=== PATIENT | male | born 1955 | race Caucasian/White ===

== ENCOUNTER 2021-01-31 09:12 | Day surgery (SDC) | payer MEDICARE, SELFPAY ==
[2021-01-31 09:39] VITALS: BP 148/69; PULSE 68; RESP 18; TEMP 36.1; O2SAT 93; BMI 57.8
--- NOTE | 2021-01-31 09:53 | PC.NURSE ---
pt becomes sob with exertion on oxygen at home prn for sob pwd ls clear . oxygen applied at 2 liter after pt became sob after ambulating pt restinf comfortbaly nad no sob pwd
--- NOTE | 2021-01-31 10:05 | P.CONAN_ITS ---
HPI - Anesthesia Eval Consult details Narrative: 65 year old male patient here for colonoscopy REPLACED BY [facility] Past Medical History Medical History (Updated 01/28/21 @ 10:20 by Sweetie Junior) Arrhythmia CAD (coronary artery disease) COPD (chronic obstructive pulmonary disease) Diabetes Elevated cholesterol GERD (gastroesophageal reflux disease) History of cardioversion HTN (hypertension) Hx of cancer of lung On anticoagulant therapy On beta milan at home Oxygen dependent Family History Family history of problems with anesthesia: No Surgical History Surgical History (Updated 01/28/21 @ 10:20 by Sweetie Junior) H/O colonoscopy History of colon resection History of colostomy reversal History of PTCA History of Problems with Anesthesia: No Social History Social History Are you a primary senior caregiver to a significant other at home: No Do you presently have visiting nurse or other home services: No Smoking Status: Former smoker Smoking Quit Date: 2015 Use of substances other than those prescribed or required for medical reasons: No Have you been hit, kicked, punched, or otherwise hurt by someone within the past year? If so, by whom?: No Advance Directives Information Provided: No Recently lost weight without trying: No Meds Allergies Allergy/AdvReac Type Severity Reaction Status Date / Time No Known Allergies Allergy Mild NOT Unverified 08/15/20 16:17 APPLICABLE Active Medications: Current Medications Generic Name Dose Route Start Last Admin Trade Name Freq PRN Reason Stop Dose Admin Lactated Ringer's 1,000 mls @ 100 mls/hr 01/31/21 10:15 Lr IVCONT .Q10H [facility] Home Medications Medication Instructions Recorded Confirmed Last Taken Type albuterol sulfate 0.63 mg INHALATION Q4-6H PRN 01/28/21 01/28/21 Unknown History albuterol sulfate [Ventolin HFA] 2 puff INHALATION QID PRN 01/28/21 01/28/21 01/31/21 History apixaban [Eliquis] 1 tab PO BID 01/28/21 01/28/21 01/27/21 History aspirin [Aspirin Low Dose] 81 mg PO DAILY 01/28/21 01/28/21 01/29/21 History azithromycin 1 tab PO 3XW 01/28/21 01/28/21 Unknown History dulaglutide [Trulicity] 0.5 ml SUBCUT QWEEK 01/28/21 01/28/21 Unknown History ferrous sulfate 1 tab PO DAILY 01/28/21 01/28/21 01/27/21 History dvjxzugifue-smzrsmpqt-pxsdpdtx 1 inh INHALATION QAM 01/28/21 01/28/21 01/31/21 History [Trelegy Ellipta] gabapentin 1 tab PO TID 01/28/21 01/28/21 01/31/21 History magnesium oxide 0.5 tab PO BID 01/28/21 01/28/21 Unknown History metformin 2 tab PO BID 01/28/21 01/28/21 Unknown History omeprazole 1 cap PO QAM 01/28/21 01/28/21 01/31/21 History potassium chloride 10 meq PO BID 01/28/21 01/28/21 Unknown History rosuvastatin 1 tab PO DAILY 01/28/21 01/28/21 Unknown History sotalol 40 tab PO BID 01/28/21 01/28/21 01/31/21 History torsemide 20 mg PO BID 01/28/21 01/28/21 Unknown History gabapentin 1 tab PO TID 01/31/21 01/31/21 Unknown History prednisone PO 01/31/21 01/31/21 Unknown History sotalol 1 tab PO BID 01/31/21 01/31/21 01/31/21 History Exam Exam Date and Time: January 31, 2021 1005 Height,Weight and Vital Signs: Height 5 ft 8.5 in Weight 175 kg Last Vital Signs Temp 97 F 01/31/21 09:39 Pulse 68 01/31/21 09:39 Resp 18 01/31/21 09:39 BP 148/69 H 01/31/21 09:39 Pulse Ox 93 01/31/21 09:39 Pertinent Lab Results Pertinent Lab Results: Lab Results 01/31/21 Range/Units 09:52 POC Glucose 152 H (60-115) mg/dL Airway Mallampati Class: II TM Dist: >3cm Neck ROM: Full Partial: Upper and Lower Heart: RRR Lungs: CTAB.Diminished. Not moving much air but Sats 97% on 2L NC Assessment and Plan Assessment Anesthesia Assessment: Anesthesia Plan Discussed and Chart Reviewed Final Anesthetic Review NPO: Yes ASA Class: III Final Preanesthetic Review: No Changes in Pt Med Stat, Meds/Allgs Chart Reviewed, Consent Obtained/Reviewed and Anes Risks/Benef Reviewed Patient Risk: High Procedure Risk: Low Assessment/Block/Sedation in SS: Assess/Block/Sedation-SS Anesthetic Plan Anesthetic Plan: MAC: Disposition: Standard PACU
--- NOTE | 2021-01-31 10:06 | PC.NURSE ---
anesthesia aware of o22 sat now 92-94 0.5 liters no sob pwd
[2021-01-31] MEDS: Lactated Ringers 1,000 ML 100 ML IVCONT (10:07)
[2021-01-31 10:10] LABS: Glucose, Whole Blood 152 mg/dL (60-115)
--- NOTE | 2021-01-31 10:12 | MHC.SHP ---
Pre-Procedural Eval Section A The patient is an INPATIENT: No Changes since office visit: No Cold of Flu in the past 2 weeks, No New Medical Problems, No Changes in Medication and No Patient answered all questions The History & Physical has been completed within 30 days and I have reviewed it.: Yes Section B Chief Complaint: Screening, Hx of Colon polyps Allergies: Allergies Allergy/AdvReac Type Severity Reaction Status Date / Time No Known Allergies Allergy Mild NOT Unverified 08/15/20 16:17 APPLICABLE Plan I have reviewed the history and physical and performed a pertinent physical examination on my patient. No changes have occurred unless specified.
--- NOTE | 2021-01-31 10:38 | PM.OP ---
Brief Operative Note Date of Service: 01/31/21 Pre-op diagnosis: screening Post-op diagnosis: same (colon polyps) Procedure: colonoscopy Surgeon: Roger Morgan Anesthesia: MAC Estimated blood loss (mL): 5 Condition: stable Disposition: PACU
[2021-01-31 10:40] VITALS: BP 131/52; PULSE 74; RESP 16; TEMP 36.5; O2SAT 95
--- NOTE | 2021-01-31 10:50 | OP_ITS ---
SURGEON: Roger Morgan MD INDICATIONS: Colon cancer screening. PREOPERATIVE DIAGNOSIS: POSTOPERATIVE DIAGNOSIS: PROCEDURE PERFORMED: Colonoscopy to the terminal ileum with biopsy and snare polypectomy. ESTIMATED BLOOD LOSS: COMPLICATIONS: ANESTHESIA: ASSISTANTS: SPECIMENS: MEDICATIONS: Monitored anesthesia care. DESCRIPTION OF PROCEDURE: History and physical performed. The risks and benefits of the procedure were explained to the patient. Informed consent was obtained and the patient was placed in left lateral decubitus position. A digital rectal exam was performed and was found to be normal. The Olympus pediatric video colonoscope was introduced into the rectum and advanced to the cecum without difficulty. The cecum was identified by transillumination, palpation, and identification of ileocecal valve. Examination was performed and the scope was removed. He tolerated the procedure well and was transferred to recovery area in stable condition. FINDINGS: The terminal ileum was normal. The visualized colonic mucosa was normal. Three polyps were identified and removed. Two were removed with biopsy forceps measuring less than 5 mm. One was in the cecum, one was at 65 cm. The 3rd polyp measuring about 7 mm was removed with a snare and recovered via suction at 55 cm. There was a patent anastomosis at 20 cm from his previous surgery. There was some mild diverticulosis in the vicinity of the anastomosis. Retroflexed examination showed internal hemorrhoids. IMPRESSION: Colon polyps. RECOMMENDATION: Follow up the biopsy results. MD NAYAN Gallardo/MARY / [id number]
[2021-01-31 10:55] VITALS: BP 137/76; PULSE 77; RESP 17; TEMP 36.2; O2SAT 95
== END 2021-01-31 11:21 | disposition home or self-care (01) ==
PROVIDERS: PCP Internal Medicine; Visit Provider Internal Medicine Gastroenterology
PROC: 0DJD8ZZ Inspection of Lower Intestinal Tract, Via Natural or Artificial Opening Endoscopic (ICD-10-PCS; CPT 45378; principal; 2021-01-31 10:50)
DX: Z12.11 Encounter for screening for malignant neoplasm of colon (principal); Z86.010 Personal history of colon polyps; D12.0 Benign neoplasm of cecum; D12.4 Benign neoplasm of descending colon; D12.5 Benign neoplasm of sigmoid colon; K57.30 Diverticulosis of large intestine without perforation or abscess without bleeding; K64.8 Other hemorrhoids; Z98.0 Intestinal bypass and anastomosis status; J44.9 Chronic obstructive pulmonary disease, unspecified; I10 Essential (primary) hypertension; E11.9 Type 2 diabetes mellitus without complications; I48.91 Unspecified atrial fibrillation; Z79.01 Long term (current) use of anticoagulants; Z79.84 Long term (current) use of oral hypoglycemic drugs; Z79.51 Long term (current) use of inhaled steroids; Z79.899 Other long term (current) drug therapy; Z85.118 Personal history of other malignant neoplasm of bronchus and lung; Z92.3 Personal history of irradiation; Z99.81 Dependence on supplemental oxygen; Z87.891 Personal history of nicotine dependence
CPT/HCPCS: 45385; 45380; 82947; 88305

== ENCOUNTER 2021-05-19 12:00 | Outpatient (REF) | payer MEDICARE, SELFPAY ==
[2021-05-19 12:12] LABS: Eosinophils Absolute Auto 0.1 X10*3/uL (0.0-0.4); Eosinophils Percent Auto 0.8 % (0-4)
[2021-05-19 12:24] LABS: MANUAL DIFF FLAG SCAN; SCAN SMEAR FLAG 1
[2021-05-19 12:26] LABS: Hematocrit 27.1 % (42-52); Imm Gran Abs Auto 0.06 X10*3/uL (0.00-0.03); Imm Gran Pct Auto 0.6 % (0.0-0.4); Mean Corpuscular Volume 72.8 fL (80-98); NRBC Pct Auto 0.8 /100WBC (0.0-0.2); Red Blood Count 3.72 X10*6/uL (4.60-5.80)
[2021-05-19 12:27] LABS: Basophils Percent Auto 0.3 % (0-2); Lymphocytes Absolute Auto 0.7 X10*3/uL (1.2-4.9); Lymphocytes Percent Auto 7.3 % (20-40); Mean Corpuscular HGB Conc 25.8 g/dl (31.0-36.0); Mean Corpuscular Hemoglobin 18.8 pg (27.0-33.0); Mean Platelet Volume 10.7 fL (9.4-12.4); Monocytes Absolute Auto 0.5 X10*3/uL (0.1-1.2); Monocytes Percent Auto 4.5 % (2-11); Neutrophils Absolute Auto 8.6 X10*3/uL (2.0-8.3); Neutrophils Percent Auto 86.5 % (45-73); Platelet Count 306 X10*3/uL (160-400); Red Cell Distribution Width 20.6 % (11.0-16.0); White Blood Count 9.9 X10*3/uL (4.8-10.8)
[2021-05-19 13:32] LABS: PLT ABN DIST 1
[2021-05-19 13:35] LABS: SLIDE REVIEW VERIFIED
== END 2021-05-19 12:01 | disposition home or self-care (01) ==
LOC: HO.LNP 12:00
PROVIDERS: Visit Provider Internal Medicine
DX: Z01.818 Encounter for other preprocedural examination (principal)
CPT/HCPCS: 85025

== ENCOUNTER 2021-05-26 16:02 | Outpatient (REF) | payer MEDICARE, SELFPAY ==
[2021-05-26 16:12] LABS: Mean Corpuscular Hemoglobin 21.5 pg (27.0-33.0); SCAN SMEAR FLAG 1
[2021-05-26 16:14] LABS: Basophils Percent Auto 0.3 % (0-2); Eosinophils Absolute Auto 0.2 X10*3/uL (0.0-0.4); Eosinophils Percent Auto 2.1 % (0-4); Hematocrit 35.8 % (42-52); Hemoglobin 9.3 g/dl (14.0-18.0); Imm Gran Abs Auto 0.08 X10*3/uL (0.00-0.03); Imm Gran Pct Auto 0.7 % (0.0-0.4); Lymphocytes Absolute Auto 2.2 X10*3/uL (1.2-4.9); Lymphocytes Percent Auto 19.9 % (20-40); Mean Corpuscular Volume 82.7 fL (80-98); Mean Platelet Volume 10.4 fL (9.4-12.4); Monocytes Absolute Auto 0.9 X10*3/uL (0.1-1.2); Monocytes Percent Auto 8.3 % (2-11); NRBC Pct Auto 0.5 /100WBC (0.0-0.2); Neutrophils Absolute Auto 7.7 X10*3/uL (2.0-8.3); Neutrophils Percent Auto 68.7 % (45-73); Platelet Count 192 X10*3/uL (160-400); Red Blood Count 4.33 X10*6/uL (4.60-5.80); Red Cell Distribution Width 27.2 % (11.0-16.0); White Blood Count 11.2 X10*3/uL (4.8-10.8)
[2021-05-26 16:15] LABS: MANUAL DIFF FLAG NO; PLT ABN DIST 1
== END 2021-05-26 16:03 | disposition home or self-care (01) ==
LOC: HO.LNP 16:02
PROVIDERS: Visit Provider Internal Medicine
DX: K92.2 Gastrointestinal hemorrhage, unspecified (principal)
CPT/HCPCS: 85025

== ENCOUNTER 2021-08-15 12:34 | Outpatient (REF) | payer MEDICARE, SELFPAY ==
[2021-08-15 12:37] LABS: MANUAL DIFF FLAG NO
[2021-08-15 12:46] LABS: Basophils Percent Auto 0.3 % (0-2); Eosinophils Absolute Auto 0.2 X10*3/uL (0.0-0.4); Eosinophils Percent Auto 1.6 % (0-4); Hematocrit 37.4 % (42-52); Hemoglobin 10.3 g/dl (14.0-18.0); Imm Gran Abs Auto 0.08 X10*3/uL (0.00-0.03); Imm Gran Pct Auto 0.6 % (0.0-0.4); Lymphocytes Absolute Auto 1.1 X10*3/uL (1.2-4.9); Lymphocytes Percent Auto 7.8 % (20-40); Mean Corpuscular HGB Conc 27.5 g/dl (31.0-36.0); Mean Corpuscular Hemoglobin 21.5 pg (27.0-33.0); Mean Corpuscular Volume 78.2 fL (80-98); Mean Platelet Volume 10.2 fL (9.4-12.4); Monocytes Absolute Auto 0.8 X10*3/uL (0.1-1.2); Monocytes Percent Auto 5.5 % (2-11); Neutrophils Absolute Auto 12.2 X10*3/uL (2.0-8.3); Neutrophils Percent Auto 84.2 % (45-73); Platelet Count 301 X10*3/uL (160-400); Red Blood Count 4.78 X10*6/uL (4.60-5.80); Red Cell Distribution Width 18.1 % (11.0-16.0); White Blood Count 14.5 X10*3/uL (4.8-10.8)
[2021-08-15 13:39] LABS: Alanine Aminotransferase 12 U/L (0-40); Albumin Level 4.4 g/dL (3.5-5.0); Alkaline Phosphatase 49 U/L (39-117); Aspartate Amino Transferase 13 U/L (5-37); Bilirubin Total 0.4 mg/dL (0.0-1.0); Blood Urea Nitrogen 15 mg/dL (9-16); Calcium 10.2 mg/dL (8.4-10.2); Estimated Glomerular Filt Rate > 60; Glucose Random 118 mg/dL (60-115); Iron 14 mcg/dL (45-160); Magnesium 1.6 mg/dL (1.6-2.6); Percent Iron Saturation 3 % (15-50); Total Iron Binding Capacity 405 mcg/dL (228-428); Total Protein 6.3 g/dL (6.5-8.0); Unsaturated Iron Binding 391 ug/dL
[2021-08-15 13:47] LABS: Anion Gap 14 (12-20); Carbon Dioxide 41 mmol/L (22-29); Chloride 84 mmol/L (96-108); Potassium 3.3 mmol/L (3.3-5.1); Sodium 136 mmol/L (135-145)
== END 2021-08-15 12:35 | disposition home or self-care (01) ==
LOC: HO.LNP 12:34
PROVIDERS: Visit Provider Internal Medicine
DX: D50.8 Other iron deficiency anemias (principal); E87.8 Other disorders of electrolyte and fluid balance, not elsewhere classified
CPT/HCPCS: 80053; 83540; 83735; 85025

== ENCOUNTER 2021-12-12 11:28 | Outpatient (REF) | payer MEDICARE, SELFPAY ==
--- NOTE | ~2021-12-12 | XR_ITS ---
EXAMINATION: XR CHEST CLINICAL INFORMATION: Pulmonary nodule COMPARISON: Previous chest x-ray January [address] July 2016 TECHNIQUE: 2 views of the chest were obtained. FINDINGS: The cardiac and mediastinal contours are normal. There is a new surgical clips seen in the posterior upper left lung. There is an irregularly-shaped nodular opacity seen projecting over the left posterior upper lung adjacent to the surgical clip measuring 3.6 x 2.3 cm that is new. The lungs are otherwise clear. There is no pleural effusion or pneumothorax. Bony structures are unremarkable. XR/XR chest 2V IMPRESSION: New nodular opacity seen in the left upper lung adjacent to surgical clip measuring 3.6 x 2.[address] follow-up recommended.
== END 2021-12-12 11:29 | disposition home or self-care (01) ==
LOC: HO.XRAY 11:28
PROVIDERS: PCP Internal Medicine; Visit Provider Internal Medicine
DX: R91.1 Solitary pulmonary nodule (principal)
CPT/HCPCS: 71046

== ENCOUNTER 2021-12-23 13:27 | Outpatient (REF) | payer MEDICARE, SELFPAY ==
--- NOTE | ~2021-12-23 | CT_ITS ---
EXAMINATION: CT CHEST WITHOUT CONTRAST CLINICAL INFORMATION: Pulmonary nodule. COMPARISON: CT chest 08/10/2016. Chest x-ray 12/12/2021. TECHNIQUE: Multidetector volumetric CT imaging of the chest was done. Axial MIP volume rendering provided. Sagittal and coronal reformatted images were obtained. This CT examination was performed using dose optimization techniques as appropriate, variously including the following: *Automated exposure control *Adjustment of mA and/or kV according to patient size (this includes techniques or standardized protocols for targeted exams where dose is matched to indication/reason for exam; i.e. extremities or head) *Use of iterative reconstruction technique DLP: 154 mGy-cm. FINDINGS: ROAD GRADER OPERATOR: Well-expanded lungs are clear. LUNGS: There is centrilobular emphysema with 4 mm nodule with central cavity right lung apex image 62/9. A 6 mm nodule right upper lobe axial image 84/9. There is a surgical staple left upper lobe with patchy adjacent opacity likely scarring. Slightly posterior and inferior to the staple is a flat density on sagittal view measuring 1.8 x 1.11 cm on image 158/9. It appears to be extending from the right upper lobe staple to the major fissure and into the right lower lobe superior segment. There is a strand extending to the posterior pleura. This is most likely more than a scar and recurrence is suspected. There is 4 mm subpleural nodule right middle lobe axial image 221/9. No additional nodules visualized. MEDIASTINUM: The thyroid lobes are symmetric and normal. The central trachea and the bronchi are widely patent. Heart size and the great vessels are normal caliber. There are small shotty lymph nodes in the mediastinum. There are coronary artery calcifications present. No pericardial effusion seen. PLEURA: There is no pleural effusion. There is a right posterior diaphragmatic pleural calcification but no thickening seen. It is best visualized on axial image 60/3. AXILLA: No lymphadenopathy. UPPER ABDOMEN: Visualized liver, spleen, pancreas and bilateral adrenal glands are unremarkable. OSSEOUS STRUCTURES: No lytic or sclerotic process seen. CT/CT chest wo con IMPRESSION: There are postsurgical changes left upper lobe with a solitary staple. At the posterior staple line there is a soft tissue density extending to the major fissure and into the left lung apex. This may represent thick scar, however there is no recent CT available for comparison. Underlying recurrence extending to posterior pleural surface cannot be entirely excluded. Recommend CT PET exam 4 further evaluation. There are additional small nodules seen in the right lung apex, a small cavitary appearing lesion and 6 mm right upper lobe nodule, which is more solid. There is centrilobular emphysema. No abnormal mediastinal or axillary lymphadenopathy. Fleischner guidelines were followed.
== END 2021-12-23 13:28 | disposition home or self-care (01) ==
LOC: HO.CT 13:27
PROVIDERS: PCP Internal Medicine; Visit Provider Internal Medicine
DX: R91.1 Solitary pulmonary nodule (principal)
CPT/HCPCS: 71250

== ENCOUNTER 2022-01-16 13:37 | Outpatient (REF) | payer MEDICARE, SELFPAY ==
[2022-01-16 13:40] LABS: MANUAL DIFF FLAG NO
[2022-01-16 13:43] LABS: Basophils Percent Auto 0.1 % (0-2); Eosinophils Absolute Auto 0.1 X10*3/uL (0.0-0.4); Eosinophils Percent Auto 0.8 % (0-4); Hematocrit 28.6 % (42.0-52.0); Hemoglobin 7.8 g/dl (14.0-18.0); Imm Gran Abs Auto 0.04 X10*3/uL (0.00-0.03); Imm Gran Pct Auto 0.6 % (0.0-0.4); Lymphocytes Absolute Auto 1.3 X10*3/uL (1.2-4.9); Lymphocytes Percent Auto 18.6 % (20-40); Mean Corpuscular HGB Conc 27.3 g/dl (31.0-36.0); Mean Corpuscular Hemoglobin 22.7 pg (27.0-33.0); Mean Corpuscular Volume 83.1 fL (80.0-98.0); Mean Platelet Volume 10.8 fL (9.4-12.4); Monocytes Absolute Auto 0.9 X10*3/uL (0.1-1.2); Monocytes Percent Auto 13.2 % (2-11); NRBC Pct Auto 0.3 /100WBC (0.0-0.2); Neutrophils Absolute Auto 4.8 x10*3/uL (2.0-8.3); Neutrophils Percent Auto 66.7 % (45-73); Platelet Count 258 X10*3/uL (160-400); Red Blood Count 3.44 X10*6/uL (4.60-5.80); Red Cell Distribution Width 19.3 % (11.0-16.0); White Blood Count 7.1 X10*3/uL (4.8-10.8)
== END 2022-01-16 13:38 | disposition home or self-care (01) ==
LOC: HO.LNP 13:37
PROVIDERS: Visit Provider Internal Medicine
DX: Z87.19 Personal history of other diseases of the digestive system (principal)
CPT/HCPCS: 85025

== ENCOUNTER 2022-02-05 12:09 | Outpatient (REF) | payer MEDICARE, SELFPAY | END 2022-02-05 12:10 | disposition home or self-care (01) | LOC: HO.MDS 12:09 | PROVIDERS: Visit Provider Internal Medicine | DX: D64.9 Anemia, unspecified (principal) | CPT/HCPCS: 36430; 86850; 86900; 86901; 86920; 96374; J1940; P9016 ==

== ENCOUNTER 2022-04-17 14:48 | Outpatient (REF) | payer MEDICARE, OTHER, SELFPAY ==
--- NOTE | ~2022-04-17 | CT_ITS ---
EXAMINATION: CT CHEST WITHOUT CONTRAST CLINICAL INFORMATION: Left upper lobe lung cancer COMPARISON: Previous chest CT most recent November 2021 TECHNIQUE: Multidetector volumetric CT imaging of the chest was done. Axial MIP volume rendering provided. Sagittal and coronal reformatted images were obtained. This CT examination was performed using dose optimization techniques as appropriate, variously including the following: *Automated exposure control *Adjustment of mA and/or kV according to patient size (this includes techniques or standardized protocols for targeted exams where dose is matched to indication/reason for exam; i.e. extremities or head) *Use of iterative reconstruction technique DLP: 109 mGy-cm FINDINGS: LUNGS: There is evidence of emphysema. There are postsurgical changes with surgical clip seen in the apical posterior segment of the left upper lobe there is a heterogeneous density adjacent to the clip that is partially cystic and reticular partially solid. This measures approximately 2 cm axial image 223 series 5. This is continuous with a focal area of pleural thickening in the left pleural fissure axial image 2:30 series 5. This is continuous with a separate nodule in the superior segment of the left lower lobe measures 1.2 cm axial image 2:30 series 5.. This appears similar in size to November 2021 exam. On sagittal and coronal reconstructed images this appears linear. There is small calcified pulmonary nodules that are stable. The largest measures 4 mm in the right upper lobe axial image 134 series 5 and 3 mm in the left upper lobe axial image 260 series 5. There is new complete atelectasis of the right middle lobe. MEDIASTINUM: Normal heart size. Coronary artery calcification. No enlarged hilar or mediastinal lymph nodes. No pericardial effusion. PLEURA: There is no pleural effusion. No pleural mass or thickening. AXILLA: No lymphadenopathy. UPPER ABDOMEN: Unremarkable. OSSEOUS STRUCTURES: There is irregularity of the left posterior lateral fifth rib. This is similar to previous exam and presumably represents postoperative change. CT/CT chest wo con IMPRESSION: Emphysema. Stable appearance to the nodular densities adjacent to the surgical clip in the apicoposterior segment of the left upper lobe, involving the left pleural fissure and superior segment of the left lower lobe. Differential would include postsurgical scarring or chronic subsegmental atelectasis and recurrent neoplasm. Continued imaging follow-up or a PET/CT scan recommended. New complete right middle lobe atelectasis. Emphysema. Stable small calcified pulmonary nodules. Coronary artery calcification. Fleischner guidelines were followed.
== END 2022-04-17 14:49 | disposition home or self-care (01) ==
LOC: HO.CT 14:48
PROVIDERS: PCP Internal Medicine; Visit Provider Internal Medicine
DX: C34.12 Malignant neoplasm of upper lobe, left bronchus or lung (principal)
CPT/HCPCS: 71250

== ENCOUNTER 2022-06-02 11:01 | Outpatient (REF) | payer MEDICARE, OTHER, SELFPAY ==
--- NOTE | ~2022-06-02 | MR_ITS ---
EXAMINATION: MR BRAIN WITHOUT AND WITH CONTRAST CLINICAL INFORMATION: Movement disorder. Lung cancer. Question metastases. COMPARISON: None available. TECHNIQUE: Multiplanar, multisequence imaging of the brain was performed before and after the intravenous administration of 5.5 mL Gadavist. Susceptibility artifact is seen emanating from the midline posterior occipital scalp region, uncertain etiology. FINDINGS: There is no acute infarction, mass, hemorrhage, or extra-axial collection. No abnormal or unexpected intracranial enhancement is seen. The ventricles, sulci, and basilar cisterns are normal in size and configuration. Moderate patchy T2/FLAIR hyperintensity seen within the cerebral white matter and central sheyla, most typical of chronic microangiopathy. No posterior fossa abnormality is seen. The flow voids of the major intracranial arteries appear intact. The bones and extracranial soft tissues are within normal limits. MR/MR head/brain wo/w con IMPRESSION: No intracranial metastasis. Background changes of moderate chronic microangiopathy.
== END 2022-06-02 11:02 | disposition home or self-care (01) ==
LOC: HO.MRI 11:01
PROVIDERS: Visit Provider Internal Medicine
DX: G25.9 Extrapyramidal and movement disorder, unspecified (principal)
CPT/HCPCS: 70553; A9585

== ENCOUNTER 2022-07-03 10:15 | Outpatient (REF) | payer MEDICARE, SELFPAY ==
[2022-07-03 10:43] LABS: MANUAL DIFF FLAG NO
[2022-07-03 11:21] LABS: Basophils Percent Auto 0.3 % (0-2); Eosinophils Absolute Auto 0.1 X10*3/uL (0.0-0.4); Eosinophils Percent Auto 1.1 % (0-4); Hemoglobin 8.7 g/dl (14.0-18.0); Imm Gran Abs Auto 0.03 X10*3/uL (0.00-0.03); Imm Gran Pct Auto 0.5 % (0.0-0.4); Lymphocytes Absolute Auto 0.9 X10*3/uL (1.2-4.9); Lymphocytes Percent Auto 13.7 % (20-40); Mean Corpuscular HGB Conc 25.6 g/dl (31.0-36.0); Mean Corpuscular Hemoglobin 21.6 pg (27.0-33.0); Mean Corpuscular Volume 84.6 fL (80.0-98.0); Mean Platelet Volume 11.2 fL (9.4-12.4); Monocytes Absolute Auto 0.8 X10*3/uL (0.1-1.2); Monocytes Percent Auto 11.6 % (2-11); Neutrophils Absolute Auto 4.8 x10*3/uL (2.0-8.3); Neutrophils Percent Auto 72.8 % (45-73); Platelet Count 331 X10*3/uL (160-400); Red Blood Count 4.02 X10*6/uL (4.60-5.80); Red Cell Distribution Width 18.9 % (11.0-16.0); White Blood Count 6.6 X10*3/uL (4.8-10.8)
[2022-07-03 11:41] LABS: Potassium 4.9 mmol/L (3.3-5.1)
== END 2022-07-03 10:16 | disposition home or self-care (01) ==
LOC: HO.LAB 10:15
PROVIDERS: PCP Internal Medicine; Visit Provider Internal Medicine
DX: K92.2 Gastrointestinal hemorrhage, unspecified (principal)
CPT/HCPCS: 36415; 84132; 85025

== ENCOUNTER 2022-11-25 08:35 | Outpatient (REF) | payer MEDICARE, SELFPAY ==
--- NOTE | ~2022-11-25 | US_ITS ---
EXAMINATION: US ABDOMEN LIMITED CLINICAL INFORMATION: Abdominal wall mass of epigastric region. COMPARISON: CT chest 04/17/2022, CT abdomen and pelvis 10/26/2015. TECHNIQUE: Real-time imaging of the region of concern as indicated by the patient superior to the umbilicus in the area of scar from previous bowel resection. FINDINGS: In the area of perceived clinical abnormality, there is a hypoechoic ovoid area measuring 2.6 x 0.6 x 3.3 cm with no demonstrable vascularity demonstrated. No fluid collections are seen. No abdominal wall hernias are seen. US/US abdomen limited IMPRESSION: A mass is present in the area of perceived clinical abnormality. This is not a simple cyst. It does not have the appearance of a hernia. If further evaluation is needed, pre- and postcontrast MRI could be performed. If this is felt to be new and suspicious on physical exam, biopsy might be another consideration.
== END 2022-11-25 08:36 | disposition home or self-care (01) ==
LOC: HO.US 08:35
PROVIDERS: PCP Internal Medicine; Visit Provider Internal Medicine
DX: R19.06 Epigastric swelling, mass or lump (principal)
CPT/HCPCS: 76705

== ENCOUNTER 2022-12-08 14:17 | Outpatient (REF) | payer MEDICARE, SELFPAY ==
--- NOTE | ~2022-12-08 | MR_ITS ---
EXAMINATION: MR ABDOMEN WITHOUT AND WITH CONTRAST CLINICAL INFORMATION: Palpable mass COMPARISON: Limited abdominal ultrasound 11/25/2022 TECHNIQUE: MRI of the abdomen before and after the IV administration of 5.5 mL of Gadavist was obtained using routine sequences. FINDINGS: LUNG BASES: The visualized lung bases are unremarkable. KIDNEYS AND URETERS: Benign-appearing T2 hyperintense bilateral renal cysts, no imaging follow-up recommended. GALLBLADDER: Unremarkable. LIVER AND BILIARY TREE: The liver is normal in signal and morphology. No suspicious liver lesion. No intra or extrahepatic biliary duct dilatation. PANCREAS: Unremarkable SPLEEN: Unremarkable ADRENAL GLANDS: Unremarkable GASTROINTESTINAL TRACT: Susceptibility artifact in the stomach limits evaluation. Large and small bowel are nondilated. LYMPH NODES: No lymphadenopathy. VASCULAR: Unremarkable ABDOMINAL WALL: Large [id number] thick slices MR abdomen limits evaluation for soft tissue findings. No definite suspicious mass to correlate to the sonographic finding There is a tiny fat-containing umbilical hernia underlying the area of concern however this does not appear to correspond to the sonographic findings. There is susceptibility artifact in the ventral abdominal wall which may reflect sequelae of postsurgical change with some T2 hypointense soft tissue suggesting scar. There is a small left para midline fat-containing ventral hernia, 5:18. OSSEOUS STRUCTURES: Unremarkable. MR/MR abdomen wo/w con IMPRESSION: Large [id number] thick slices MR abdomen limits evaluation for soft tissue findings. No definite suspicious mass to correlate to the sonographic finding, however exam is significantly limited and a dedicated soft tissue MR targeted the area of interest could be considered, alternatively continued sonographic surveillance or tissue sampling, as clinically warranted. There is a tiny fat-containing umbilical hernia underlying the area of concern however this does not appear to correspond to the sonographic findings. There is susceptibility artifact in the ventral abdominal wall which may reflect sequelae of postsurgical change with some T2 hypointense soft tissue suggesting scar. There is a small left para midline fat-containing ventral hernia.
== END 2022-12-08 14:18 | disposition home or self-care (01) ==
LOC: HO.MRI 14:17
PROVIDERS: PCP Internal Medicine; Visit Provider Internal Medicine
DX: R19.06 Epigastric swelling, mass or lump (principal)
CPT/HCPCS: 74183; A9585

== ENCOUNTER 2023-01-08 15:32 | Outpatient (REF) | payer MEDICARE, SELFPAY ==
[2023-01-08 15:35] LABS: MANUAL DIFF FLAG NO
[2023-01-08 15:41] LABS: Basophils Percent Auto 0.4 % (0-2); Eosinophils Absolute Auto 0.1 X10*3/uL (0.0-0.4); Eosinophils Percent Auto 1.5 % (0-4); Hematocrit 33.6 % (42.0-52.0); Hemoglobin 8.6 g/dl (14.0-18.0); Imm Gran Abs Auto 0.04 X10*3/uL (0.00-0.03); Imm Gran Pct Auto 0.5 % (0.0-0.4); Lymphocytes Absolute Auto 1.3 X10*3/uL (1.2-4.9); Lymphocytes Percent Auto 16.5 % (20-40); Mean Corpuscular HGB Conc 25.6 g/dl (31.0-36.0); Mean Corpuscular Hemoglobin 20.4 pg (27.0-33.0); Mean Corpuscular Volume 79.8 fL (80.0-98.0); Mean Platelet Volume 10.7 fL (9.4-12.4); Monocytes Percent Auto 12.5 % (2-11); Neutrophils Absolute Auto 5.4 x10*3/uL (2.0-8.3); Neutrophils Percent Auto 68.6 % (45-73); Platelet Count 385 X10*3/uL (160-400); Red Blood Count 4.21 X10*6/uL (4.60-5.80); Red Cell Distribution Width 19.9 % (11.0-16.0); White Blood Count 7.9 X10*3/uL (4.8-10.8)
[2023-01-08 17:20] LABS: Magnesium 1.3 mg/dL (1.6-2.6); Potassium 4.5 mmol/L (3.3-5.1)
== END 2023-01-08 15:33 | disposition home or self-care (01) ==
LOC: HO.LNP 15:32
PROVIDERS: Visit Provider Internal Medicine
DX: D50.8 Other iron deficiency anemias (principal); E87.6 Hypokalemia
CPT/HCPCS: 83735; 84132; 85025

== ENCOUNTER 2023-03-01 10:16 | Outpatient (REF) | payer MEDICARE, SELFPAY ==
--- NOTE | ~2023-03-01 | US_ITS ---
EXAMINATION: US ABDOMEN LIMITED CLINICAL INFORMATION: Epigastric swelling, mass or lump. COMPARISON: MR abdomen without and with contrast 12/08/2022. Ultrasound abdomen limited 11/25/2022. CT abdomen and pelvis 10/26/2015. X-ray abdomen KUB 08/25/2015 and 08/24/2015. TECHNIQUE: Real-time imaging of the supraumbilical area. FINDINGS: There is a hypoechoic focal mass measuring 2.4 x 0.7 x 1.4 cm in the midline with no demonstrable vascularity, identical to that seen on the 11/25/2022 study. On the recent MRI, no definite mass was seen corresponding to this abnormality. No fluid collections are seen. No hernias are detected. US/US abdomen limited IMPRESSION: A mass is seen in the midline in the subcutaneous tissues. The appearance is nonspecific. Appearances are unchanged when compared to the prior ultrasound from 11/25/2022. The MR failed to demonstrate a suspicious mass to correlate with the sonographic findings. As stated previously, a dedicated soft tissue MR targeted to the area of interest could be considered for further evaluation. However, given the fact that this has not changed, a follow-up ultrasound in 6 months to document stability seems reasonable.
== END 2023-03-01 10:17 | disposition home or self-care (01) ==
LOC: HO.US 10:16
PROVIDERS: PCP Internal Medicine; Visit Provider Internal Medicine
DX: R19.06 Epigastric swelling, mass or lump (principal)
CPT/HCPCS: 76705